=== PATIENT | male | born 1980 | race African-American/Black ===

== ENCOUNTER 2017-08-12 14:21 | Inpatient (IN) ==
[2017-08-12 15:23] LABS: MANUAL DIFF NEEDED? NO
[2017-08-12 15:40] LABS: BASO% 0.2 % (0.0-0.8); HEMATOCRIT 55.4 % (42.0-52.0); HEMOGLOBIN 19.6 g/dL (14.0-18.0); LYMPH# 1.65 X1000 (1.2-3.4); LYMPH% 25.8 % (20.5-51.1); MCH 30.1 PG (27-31); MCHC 35.4 g/dL (33-37); MONO# 0.35 X1000 (0.11-0.59); MONO% 5.5 % (1.7-9.3); MPV 12.2 FL (7.4-10.4); NEUT% 68.5 % (42.2-75.2); PLT 263 X1000 (130-400); RBC 6.52 XMIL (4.7-6.1)
[2017-08-12 16:13] LABS: ALBUMIN 4.8 g/dL (3.5-5.0); CALCIUM 9.6 mg/dL (8.8-10.2); TOTAL BILIRUBIN 0.43 mg/dL (0.20-1.00); TOTAL PROTEIN 7.5 g/dL (6.3-8.3)
[2017-08-12 16:14] LABS: POTASSIUM 6.1 mmol/L (3.5-5.1)
[2017-08-12 16:20] LABS: URINE CULTURE NEEDED? NO; URINE MICRO REVIEW NEEDED? NO; URINE SOURCE CLEAN CATCH
[2017-08-12 16:30] LABS: BILIRUBIN URINE NEGATIVE (NEGATIVE); BLOOD URINE NEGATIVE (NEGATIVE); COLOR YELLOW; GLUCOSE URINE >1000 mg/dL (NEGATIVE); LEUKOCYTES URINE NEGATIVE (NEGATIVE); NITRITE URINE NEGATIVE (NEGATIVE); PROTEIN URINE NEGATIVE (NEGATIVE); SP GRAVITY URINE 1.023; TURBIDITY URINE CLEAR (CLEAR); UROBILINOGEN URINE NORMAL (NORMAL)
[2017-08-12 16:36] LABS: UR EPITHELIAL CELLS <10 /HPF (<10); URINE BACTERIA NEGATIVE /HPF; URINE RBC <10 /HPF (<10); URINE WBC <10 /HPF (<10)
[2017-08-12] MEDS ORDERED: NS 1,000 ML IV ONE ×4 (16:58→17:00)
[2017-08-12] MEDS ORDERED: HUMULIN R 100 UNIT in NS 100 ML IV SCH (17:00)
[2017-08-12] MEDS ORDERED: ZOFRAN IV ONE (18:18)
[2017-08-12] MEDS: PROTONIX IV SCH (18:24)
[2017-08-12] MEDS ORDERED: ZOFRAN IV PRN ×2 (18:33→22:39)
[2017-08-12] MEDS ORDERED: TYLENOL PO PRN ×2 (18:36→22:39)
[2017-08-12] MEDS ORDERED: MORPHINE IV PRN (18:37)
[2017-08-12] MEDS ORDERED: SODIUM CHLORIDE 0.9% INJ SCH (18:45)
[2017-08-12] MEDS: LOVENOX SUBQ SCH (18:56)
--- NOTE | 2017-08-12 19:12 | Diag Imaging Result Doc PS360 ---
CHEST-PORTABLE - 08/12/2017 INDICATION: cough TECHNIQUE: COMPARISON: 08/03/2011 FINDINGS: The lungs are normally expanded and clear. Heart size and mediastinal contours are normal. No pneumothorax or pleural effusion. There is a small calcified granuloma at the left lung apex. IMPRESSION: Negative exam. Electronically signed by Shane Trejo 08/12/2017 7:10 PM
[2017-08-12] MEDS: 1/2 NS 1,000 ML IV SCH (22:30)
[2017-08-12] MEDS ORDERED: HUMULIN R IV ONE (22:32)
[2017-08-12] MEDS ORDERED: SODIUM BICARBONATE 8.4% 100 MEQ in D5W 500 ML IV PRN (22:32)
[2017-08-12] MEDS ORDERED: D50W SYRINGE IV PRN (22:32)
[2017-08-12] MEDS ORDERED: SODIUM PHOSPHATE 30 MMOL in D5W 250 ML IV PRN (22:32)
[2017-08-12] MEDS ORDERED: SODIUM BICARBONATE 8.4% 50 MEQ in D5W 250 ML IV PRN (22:32)
[2017-08-12] MEDS ORDERED: POTASSIUM CHLORIDE 40 MEQ/SWI 40 MEQ/100 ML IVPB IV PRN (22:32)
[2017-08-12] MEDS ORDERED: POTASSIUM CHLORIDE 20 MEQ/SWI 20 MEQ/100 ML IVPB IV PRN (22:32)
[2017-08-12] MEDS ORDERED: MAGNESIUM SULFATE 2 GM/S.W.I. 2 GM/50 ML IVPB IV PRN (22:32)
[2017-08-12] MEDS ORDERED: D5 1/2 NS 1,000 ML IV SCH (22:32)
[2017-08-12 23:09] LABS: AMYLASE 50 U/L (20-200); LIPASE 39 U/L (13-60)
[2017-08-12 23:27] LABS: ALLEN TEST YES; BE -9.6 mmoll (-3.0-3.0); BLOOD TYPE ARTERIAL; DRAW SITE L RADIAL; METHB 1.5 % (0.0-1.5); O2(CT) 23.4 mL/dL (15.0-23.0); PCO2(98.6) 25 mmHg (35-45); PO2(98.6) 90 mmHg (60-100); SAMPLE BLOOD; SAO2 98.6 % (95.0-100.0); THB 17.4 g/dL (11.5-17.4); pH(98.6) 7.35 (7.35-7.45)
[2017-08-12 23:29] LABS: MODALITY ROOM AIR
[2017-08-12 23:33] LABS: SODIUM 133 mmol/L (136-145)
[2017-08-12 23:34] LABS: AGAP 29; BUN 45 mg/dL (8-22); CALCIUM 7.3 mg/dL (8.8-10.2); CHLORIDE 93 mmol/L (98-107); COSMO 295; MAGNESIUM 2.4 mg/dL (1.5-2.7); POTASSIUM 5.2 mmol/L (3.5-5.1); TCO2 11 mmol/L (25-35)
[2017-08-13 02:56] LABS: ALLEN TEST YES; BE -2.9 mmoll (-3.0-3.0); BLOOD TYPE ARTERIAL; DRAW SITE L RADIAL; METHB 1.5 % (0.0-1.5); O2(CT) 22.2 mL/dL (15.0-23.0); PCO2(98.6) 34 mmHg (35-45); PO2(98.6) 85 mmHg (60-100); SAMPLE BLOOD; SAO2 99.6 % (95.0-100.0); THB 16.3 g/dL (11.5-17.4)
[2017-08-13 02:57] LABS: MODALITY ROOM AIR
[2017-08-13 03:10] LABS: AGAP 14; BUN 34 mg/dL (8-22); CALCIUM 7.8 mg/dL (8.8-10.2); CHLORIDE 98 mmol/L (98-107); COSMO 277; HEMOGLOBIN A1C 13.6 % (4.8-6.0); MAGNESIUM 2.3 mg/dL (1.5-2.7); POTASSIUM 4.7 mmol/L (3.5-5.1); SODIUM 132 mmol/L (136-145); TCO2 20 mmol/L (25-35)
[2017-08-13] MEDS ORDERED: PNEUMOVAX 23 IM ONE (04:54)
--- NOTE | 2017-08-13 05:11 | EKG Report ---
Test Performed on : 08/12/2017 5:01:30 PM Test Reason : CP Blood Pressure : / mmHG Vent. Rate : 110 BPM Atrial Rate : 110 BPM P-R Int : 132 ms QRS Dur : 082 ms QT Int : 372 ms P-R-T Axes : 071 051 051 degrees QTc Int : 503 ms Sinus tachycardia. Right atrial enlargement Borderline ECG When compared with ECG of 02-AUG-2011 16:04, T wave inversion no longer evident in Anterior leads Unconfirmed Result
[2017-08-13 06:43] LABS: ALLEN TEST YES; BE -0.6 mmoll (-3.0-3.0); BLOOD TYPE ARTERIAL; DRAW SITE R RADIAL; METHB 1.4 % (0.0-1.5); O2(CT) 22.4 mL/dL (15.0-23.0); PCO2(98.6) 36 mmHg (35-45); PO2(98.6) 86 mmHg (60-100); SAMPLE BLOOD; SAO2 98.6 % (95.0-100.0); THB 16.6 g/dL (11.5-17.4); pH(98.6) 7.42 (7.35-7.45)
[2017-08-13 06:44] LABS: MODALITY ROOM AIR
[2017-08-13 07:57] LABS: BASO% 0.1 % (0.0-0.8); EOS# 0.11 X1000 (0.0-0.7); EOS% 1.3 % (0.0-10.0); HEMATOCRIT 42.8 % (42.0-52.0); HEMOGLOBIN 15.8 g/dL (14.0-18.0); LYMPH# 2.77 X1000 (1.2-3.4); LYMPH% 33.9 % (20.5-51.1); MANUAL DIFF NEEDED? YES; MCH 30.9 PG (27-31); MCHC 36.9 g/dL (33-37); MCV 83.8 FL (81-99); MONO# 0.78 X1000 (0.11-0.59); MONO% 9.5 % (1.7-9.3); MPV 11.4 FL (7.4-10.4); NEUT% 55.2 % (42.2-75.2); PLT 191 X1000 (130-400); RBC 5.11 XMIL (4.7-6.1)
[2017-08-13 07:58] LABS: AGAP 13; BUN 28 mg/dL (8-22); CALCIUM 7.8 mg/dL (8.8-10.2); CHLORIDE 97 mmol/L (98-107); COSMO 277; EOS 4 % (1-10); LYMPHS 40 % (21-51); MAGNESIUM 2.3 mg/dL (1.5-2.7); MONO 2 % (1-9); POTASSIUM 4.4 mmol/L (3.5-5.1); SODIUM 132 mmol/L (136-145); TCO2 22 mmol/L (25-35)
[2017-08-13] MEDS ORDERED: LANTUS SUBQ SCH (09:00)
[2017-08-13] MEDS: 1/2 NS 1,000 ML IV SCH ×2 (09:03→13:43)
[2017-08-13] MEDS: MIRALAX PO SCH (09:11)
[2017-08-13] MEDS: HUMULIN R SUBQ SCH ×3 (11:21→21:40)
[2017-08-13 16:18] LABS: AGAP 12; BUN 23 mg/dL (8-22); CALCIUM 8.1 mg/dL (8.8-10.2); CHLORIDE 91 mmol/L (98-107); COSMO 274; POTASSIUM 4.6 mmol/L (3.5-5.1); SODIUM 126 mmol/L (136-145); TCO2 23 mmol/L (25-35)
[2017-08-13] MEDS: LOVENOX SUBQ SCH (19:02)
[2017-08-13] MEDS: PROTONIX IV SCH (19:02)
[2017-08-13] MEDS ORDERED: LANTUS SUBQ ONE (21:00)
[2017-08-13] MEDS ORDERED: INSULIN PEN NEEDLES ONE (21:36)
[2017-08-14] MEDS: HUMULIN R SUBQ SCH ×4 (06:25→20:42)
[2017-08-14 06:28] LABS: MANUAL DIFF NEEDED? NO
[2017-08-14 06:33] LABS: BASO% 0.3 % (0.0-0.8); EOS# 0.16 X1000 (0.0-0.7); EOS% 2.1 % (0.0-10.0); HEMATOCRIT 46.9 % (42.0-52.0); HEMOGLOBIN 16.8 g/dL (14.0-18.0); LYMPH# 4.92 X1000 (1.2-3.4); LYMPH% 63.5 % (20.5-51.1); MCH 30.3 PG (27-31); MCHC 35.8 g/dL (33-37); MCV 84.5 FL (81-99); MONO% 6.5 % (1.7-9.3); MPV 11.9 FL (7.4-10.4); NEUT% 27.6 % (42.2-75.2); PLT 200 X1000 (130-400); RBC 5.55 XMIL (4.7-6.1)
[2017-08-14 06:58] LABS: AGAP 15; BUN 15 mg/dL (8-22); CALCIUM 8.5 mg/dL (8.8-10.2); CHLORIDE 95 mmol/L (98-107); COSMO 269; POTASSIUM 3.8 mmol/L (3.5-5.1); SODIUM 134 mmol/L (136-145); TCO2 24 mmol/L (25-35)
[2017-08-14] MEDS: LANTUS SUBQ SCH ×2 (08:42→20:41)
[2017-08-14] MEDS: MIRALAX PO SCH (08:42)
[2017-08-14] MEDS ORDERED: SODIUM CHLORIDE 0.9% 10 ML ONE (17:08)
[2017-08-14] MEDS: LOVENOX SUBQ SCH (20:41)
[2017-08-14] MEDS: PROTONIX IV SCH (20:42)
[2017-08-15] MEDS: HUMULIN R SUBQ SCH ×4 (06:09→22:16)
[2017-08-15 06:51] LABS: AGAP 11; BUN 13 mg/dL (8-22); CALCIUM 8.8 mg/dL (8.8-10.2); CHLORIDE 101 mmol/L (98-107); COSMO 282; SODIUM 142 mmol/L (136-145); TCO2 30 mmol/L (25-35)
[2017-08-15] MEDS: LANTUS SUBQ SCH (08:32)
[2017-08-15] MEDS: MIRALAX PO SCH (08:33)
[2017-08-15] MEDS ORDERED: SODIUM CHLORIDE 0.9% INJ SCH (18:00)
[2017-08-15] MEDS ORDERED: LANTUS SUBQ SCH (21:00)
[2017-08-15] MEDS: PROTONIX IV SCH (22:15)
[2017-08-15] MEDS: LOVENOX SUBQ SCH (22:15)
[2017-08-16] MEDS ORDERED: INSULIN PEN NEEDLES ONE ×2 (05:32→12:25)
[2017-08-16] MEDS: HUMULIN R SUBQ SCH (07:32)
[2017-08-16 07:41] VITALS: BP 115/81
[2017-08-16] MEDS: LANTUS SUBQ SCH (08:20)
[2017-08-17] MEDS ORDERED: PROTONIX PO SCH (07:00)
== END 2017-08-16 12:45 | disposition home or self-care (01) ==
LOC: ED 14:21 → 3S 21:38 → 3N 08-13 17:13
PROVIDERS: ATTEND Internal Medicine